=== PATIENT | male | born 1985 | race Caucasian/White ===

== ENCOUNTER 2017-02-13 22:17 | Emergency (ER) | payer BC ==
--- NOTE | 2017-02-13 23:12 | EDPHY ---
H & P Stated Complaint: LACERATION TO RT THUMB Source: Patient - Personal History Current Tetanus/Diphtheria Vaccine: Yes Tetanus Vaccine Date: 2015 - Medical/Surgical History Hx Asthma: No Hx Chronic Respiratory Disease: No Hx Diabetes: No Hx Cardiac Disease: No Hx Renal Disease: No Hx Cirrhosis: No Hx Alcoholism: No Hx HIV/AIDS: No Hx Splenectomy or Spleen Trauma: No Other PMH: denies - Social History Smoking Status: Never smoked HPI/ROS: CHIEF COMPLAINT: Thumb laceration HISTORY OF PRESENT ILLNESS: Patient complains of laceration to the right thumb. This happened this afternoon around 5:30 p.m. while moving a stove. He was reached around to the back of the stove when it cut him. He reports a large skin flap. It was moderately painful. It was bleeding heavily but he applied pressure and a Band- Aid to it. This stopped the bleeding. No numbness or tingling. No difficulty moving the thumb. No injury elsewhere. Tetanus is up-to-date less than 5 years ago. No other associated complaints or modifying factors TIME OF INJURY: 5:30 p.m. today TETANUS STATUS: Up-to-date less than 5 years ago REVIEW OF SYSTEMS: Ten systems reviewed and are negative unless otherwise noted in the HPI EXAMINATION General Appearance: Alert, no distress Head: normocephalic, atraumatic Cardiovascular: Pulses normal throughout. Symmetric radial pulses 2+. Brisk cap refill Neurological: A&O, sensory symmetric, strength symmetric. Two point sensation intact. Interossei strength is good Skin: Warm and dry, no rash. There is a 2 cm oval laceration with skin flap. No exposure of the tendon. No foreign body. Neurovascular intact. Extremities: Tender over the area laceration. Range of motion intact and without deficit. DIFFERENTIAL DIAGNOSES: Including but not limited to laceration, complex laceration, laceration with foreign body, laceration with tendon injury MDM: 11:12 p.m. Laceration of the right thumb that includes a skin island. No foreign body. No tendon injury. Neurovascular intact. I have administered a digital block. Proceed with irrigation and closure. 12:10 a.m. Laceration to the right thumb. This is a superficial, partial avulsion after further exploration after the irrigation. I did tack the skin down. This may or may not be viable but the patient wanted the skin to be reattached. We discussed wound care. We discussed follow up here in 7-10 days for suture removal. We discussed ED precautions in the interim. He is comfortable with this plan. He is neurovascular intact. Discharged home stable condition with wound care instructions PROCEDURE: Digital Block Indication: Finger laceration Consent: Verbal Location: Right thumb Anesthesia: Lidocaine 1% plain, 0.25% Marcaine plain, 5mL Description: Base of the thumb was prepped. The above was infused between the proper palmar nerves and over the dorsum of the right thumb. Tolerated well. Good anesthesia. Complications: None PROCEDURE: Laceration repair Consent: Verbal Location: Right thumb Length of repair: 2 cm Complexity: Complex due to shape and skin avulsion Layer involvement: Single Anesthesia: Digital block as above Irrigation: Extensive Debridement: None Procedure description: Following good anesthesia, the wound was copiously irrigated. Wound bed was explored and there is no foreign body noted. Wound borders were approximated well with good hemostasis. Tolerated well without complication. Suture/Staple material: 5-0 Ethilon, 5 simple interrupted sutures Wound care: Routine as discussed Suture/Staple removal: 7-10 Days SUTURE STAPLE REMOVAL: 7-10 days ED Precautions: Worsening pain. Erythema, edema, cyanosis, pallor, paresthesia or anesthesia. SUPERVISION: This patient was independently evaluated without direct examination by the attending physician. Case was discussed with attending physician. (Hilton Rendon) Constitutional: Initial Vital Signs Temperature (C) 36.8 C 02/13/17 22:22 Heart Rate 76 02/13/17 22:22 Respiratory Rate 18 02/13/17 22:22 Blood Pressure 125/80 H 02/13/17 22:22 O2 Sat (%) 96 02/13/17 22:22 O2 Delivery Mode Room Air Allergies/Adverse Reactions: Penicillins Allergy (Verified 12/23/13 07:49) Medical Decision Making Other Provider: PHYSICIAN DOCUMENTATION: The patient was evaluated and managed by the Physician Curb Hop. My co- signature indicates that I have reviewed this chart and I agree with the findings and plan of care as documented. I am the secondary supervising physician. (Mikala Puente) Departure - Departure Disposition: Home, Routine, Self-Care Clinical Impression: Thumb laceration Qualifiers: Encounter type: initial encounter Damage to nail status: without damage Foreign body presence: without foreign body Laterality: right Qualified Code(s) : S61.011A - Laceration without foreign body of right thumb without damage to nail, initial encounter Condition: Good Instructions: Care For Your Stitches (ED), Laceration (ED) Additional Instructions: 1. Wound care as discussed 2. Follow up with primary care physician 3. Return to ER or primary care physician in 7-10 days for suture removal Referrals: Linda Figueredo [Primary Care Provider] - As per Instructions
[2017-02-14 00:51] VITALS: BP 129/90; PULSE 59; RESP 16; TEMP 98.4; O2SAT 97
== END 2017-02-14 00:50 | disposition home or self-care (01) ==
PROC: 0HQFXZZ Repair Right Hand Skin, External Approach (ICD-10-PCS; principal; 2017-02-13)
DX: S61.011A Laceration without foreign body of right thumb without damage to nail, initial encounter (principal); W45.8XXA Other foreign body or object entering through skin, initial encounter